=== PATIENT | female | born 1965 | race Caucasian/White ===

== ENCOUNTER 2017-08-20 13:38 | Observation (INO) | payer BC ==
[~2017-08-20] VITALS: Ht 170.2 cm; Wt 119.9 kg
[~2017-08-20 13:38] MED LIST: ASPIR-TRIN325 M1 PO; DIOVAN320 MG PO; EXCEDRIN EXTRA1 EACH PO; HYDROCHLOROTHIA25 MG PO; NEURONTIN400 MG PO; NORVASC10 MG PO; PRAVACHOL80 MG PO; PROVENTIL HFA6.7 GM IH; Proventil,Ventolin H IH; TOPROL XL100 MG PO; Tylenol Regular Stre PO
[2017-08-20 14:19] LABS: HEMATOCRIT 45.8 % (36.0-46.0); HEMOGLOBIN 15.7 G/DL (11.9-15.5); MCH 31.8 PG (29.0-34.0); MCHC 34.3 G/DL (30.0-36.0); MCV 92.9 FL (83-99); PLATELET COUNT 323 K/uL (156-360); RBC DIS.WIDTH-CV 11.8 % (11.8-14.6); RBC DIS.WIDTH-SD 40.5 % (39-53); RED BLOOD COUNT 4.93 M/uL (3.80-5.20); WHITE BLOOD COUNT 23.8 K/uL (4.1-10.2)
[2017-08-20 14:29] LABS: CHLORIDE 105 mEq/L (99-109)
[2017-08-20 14:30] LABS: POTASSIUM 4.5 mEq/L (3.7-5.4); SODIUM 136 mEq/L (136-147)
[2017-08-20 14:31] LABS: GLUCOSE 100 mg/dL (70-99)
[2017-08-20 14:35] LABS: CREATININE 0.9 mg/dL (0.6-1.3); GFR ESTIMATE (CALCULATED) > 59 mL/min/
[2017-08-20 14:36] LABS: UREA NITROGEN (BUN) 29 mg/dL (9-23)
[2017-08-20 16:37] LABS: TROP-I INTERPRETATION NEGATIVE; TROPONIN-I < 0.01 ng/mL (0.0-0.30)
[2017-08-20 17:01] LABS: APPEARANCE CLEAR ((CLEAR)); BILIRUBIN NEGATIVE; BLOOD NEGATIVE; COLOR YELLOW ((YELLOW)); GLUCOSE (STRIP) NEGATIVE; KETONES NEGATIVE; LEUKOCYTES NEGATIVE; NITRITE NEGATIVE; PROTEIN (STRIP) NEGATIVE; SPECIFIC GRAVITY 1.014 (1.000-1.030); UCUL ADDED? NO; UROBILINOGEN 0.2 MG/DL (0.2-1.0)
[2017-08-20] MEDS ORDERED: AMLODIPINE BESY10 MG PO (20:24)
[2017-08-20] MEDS ORDERED: APRESOLINE25 MG PO (20:24)
[2017-08-20] MEDS ORDERED: SPIRONOLACTONE100 MG PO (20:24)
[2017-08-20] MEDS ORDERED: GABAPENTIN100 MG PO (20:25)
[2017-08-20 22:53] VITALS: BP 178/88
[2017-08-20 23:39] LABS: TROP-I INTERPRETATION NEGATIVE; TROPONIN-I < 0.01 ng/mL (0.0-0.30)
[2017-08-21 06:58] LABS: HEMOGLOBIN 13.8 G/DL (11.9-15.5); MCH 31.4 PG (29.0-34.0); MCHC 32.9 G/DL (30.0-36.0); MCV 95.7 FL (83-99); PLATELET COUNT 245 K/uL (156-360); RBC DIS.WIDTH-CV 11.9 % (11.8-14.6); RBC DIS.WIDTH-SD 41.3 % (39-53); RED BLOOD COUNT 4.39 M/uL (3.80-5.20); WHITE BLOOD COUNT 8.2 K/uL (4.1-10.2)
[2017-08-21 07:17] LABS: TROP-I INTERPRETATION NEGATIVE; TROPONIN-I < 0.01 ng/mL (0.0-0.30)
[2017-08-21 07:27] LABS: CHLORIDE 105 MEQ/L (99-109); CREATININE 0.7 MG/DL (0.6-1.3); GFR ESTIMATE (CALCULATED) > 59 mL/min/; GLUCOSE 83 mg/dL (70-99); POTASSIUM 4.1 MEQ/L (3.7-5.4); SODIUM 137 MEQ/L (136-147); UREA NITROGEN (BUN) 20 mg/dL (9-23)
[2017-08-21 08:55] VITALS: BP 133/88
[2017-08-21 12:20] VITALS: BP 124/65
[2017-08-21] MEDS ORDERED: TYLENOL EXTRA500 MG PO (13:58)
== END 2017-08-21 14:46 | disposition home or self-care (01) ==
LOC: EME 13:38 → EDOF 21:29 → ENRESERV 21:41 → 5WEST 22:45
PROVIDERS: Hospitalist
DX: R07.89 Other chest pain (principal); D72.829 Elevated white blood cell count, unspecified; K86.2 Cyst of pancreas; I10 Essential (primary) hypertension; R06.02 Shortness of breath; I95.9 Hypotension, unspecified; R05 Cough; F17.210 Nicotine dependence, cigarettes, uncomplicated; R00.0 Tachycardia, unspecified; I25.10 Atherosclerotic heart disease of native coronary artery without angina pectoris; Z90.710 Acquired absence of both cervix and uterus
CPT/HCPCS: 71046; 71250; 71260; 74177; 78582; 80048; 81003; 83605; 84484; 85027; 87040; 93005; 99202; 99281; 99284; A9539; A9540; G0378; J1650; J1885; J2270; J7030